=== PATIENT | male | born 1975 | race Caucasian/White ===

== ENCOUNTER 2017-08-25 12:30 | Emergency (ER) | payer BC ==
[2017-08-25] MEDS ORDERED: Lidocaine 1% 20 ML MDV INJECT ONE (12:47)
[2017-08-25] MEDS ORDERED: Diphtheria,Pertussis(Acell),Tetanus Vaccine 0.5 ML Syringe IM ONE (12:47)
[2017-08-25] MEDS ORDERED: Bacitracin Oint 1 GM U/D Packet TOP ONE (12:48)
--- NOTE | 2017-08-25 13:04 | EDM.PDOC ---
ED HPI GENERAL MEDICAL PROBLEM - General Chief Complaint: Laceration Stated Complaint: RT KNEE Time Seen by Provider: 08/25/17 12:35 Source of Information: Reports: Patient History Limitations: Reports: No Limitations - History of Present Illness INITIAL COMMENTS - FREE TEXT/NARRATIVE: HISTORY AND PHYSICAL: History of present illness: Patient is a 41-year-old male who presents to the emergency room today with complaints of a laceration to his right knee. States he was walking outside and slipped on the 80s falling onto his right knee. He does have a 3 cm laceration across the mid patella. Patient is ambulatory and denies any difficulty walking. Tetanus was last updated 7-8 years ago. Denies any numbness or tingling to the affected extremity. Denies any previous trauma, injury or surgeries to the affected extremity. Review of systems: As per history of present illness and below otherwise all systems reviewed and negative. Past medical history: As per history of present illness and as reviewed below otherwise noncontributory. Surgical history: As per history of present illness and as reviewed below otherwise noncontributory. Social history: No reported history of drug or alcohol abuse. Family history: As per history of present illness and as reviewed below otherwise noncontributory. Physical exam: Gen.: Well-developed and well-nourished 41-year-old male. Alert and oriented. Nontoxic appearing. HEENT: Atraumatic, normocephalic, pupils reactive, negative for conjunctival pallor or scleral icterus, mucous membranes moist, throat clear, neck supple, nontender, trachea midline. Lungs: Clear to auscultation, breath sounds equal bilaterally, chest nontender. Heart: S1S2, regular, negative for clicks, rubs, or JVD. Abdomen: Soft, nondistended, nontender. Negative for masses or hepatosplenomegaly. Negative for costovertebral tenderness. Pelvis: Stable nontender. Genitourinary: Deferred. Rectal: Deferred. Extremities: Good flexion and extension of the knee. Negative drawer test. No knee instability noted. Strong pedal pulses bilaterally. Neurovascular unremarkable. Skin: 3 cm laceration to mid left knee, no active bleeding noted. Neuro: Awake, alert, oriented. Cranial nerves II through XII unremarkable. Cerebellum unremarkable. Motor and sensory unremarkable throughout. Exam nonfocal. Lacerated area was anesthetized with 1% lidocaine. Area was cleansed with chlorhexidine and irrigated with wound wash. #5 interrupted stitches were placed in the right knee, using 3-0 nylon. Patient tolerated well. Nonstick dressing was applied with bacitracin. Knee immobilizer was placed by nursing staff. Patient was educated on signs and symptoms of infection and what to monitor for that would prompt him to come back to the ER. Patient voices understanding and is agreeable to plan of care. He denies any further questions at this time. Diagnostics: [] Therapeutics: Tdap, wound irrigation/cleansing, nonstick bacitracin dressing, knee immobilizer Impression: Laceration Plan: 1. Please keep the lacerated area clean and dry. Monitor for signs of infection as we discussed. Stitches out in 10-12 days. 2. To prevent the stitches from popping open, please use the knee immobilizer and avoid overuse/deep bending of the knee. 3. Tylenol and or Motrin as needed for pain management. Rest, ice, elevate the affected extremity. 4. Follow up with the primary care provider in the next 1-2 days. Return to the ED as needed and as discussed. Definitive disposition and diagnosis as appropriate pending reevaluation and review of above. Right Knee Pain Score (Numeric/FACES): 5 - Related Data Allergies Allergy/AdvReac Type Severity Reaction Status Date / Time apple juice Allergy Vomiting Uncoded 08/25/17 12:44 Past Medical History - Infectious Disease History Infectious Disease History: Reports: Chicken Pox - Past Surgical History HEENT Surgical History: Reports: Tonsillectomy Musculoskeletal Surgical History: Reports: Arthroscopic Knee Social & Family History - Family History Family Medical History: Noncontributory - Tobacco Use Smoking Status *Q: Former Smoker Used Tobacco, but Quit: Yes Month Tobacco Last Used: unknown - Recreational Drug Use Recreational Drug Use: No ED ROS GENERAL - Review of Systems Review Of Systems: ROS reveals no pertinent complaints other than HPI. ED EXAM, SKIN/RASH Exam: See Below (See dictation) ED SKIN PROCEDURES - Laceration/Wound Repair Right Middle Knee Lac/Wound length In cm: 3 Appearance: Subcutaneous Distal NVT: No Tendon Injury Anesthetic Type: Local Local Anesthesia - Lidocaine (Xylocaine): 1% Plain Local Anesthetic Volume: 5cc Skin Prep: Chlorhexidine (Hibiciens), Saline, Sterile Drape Exploration/Debridement/Repair: Wound Explored, In a Bloodless Field, Explored to Base, No Foreign Material Found Closed with: Sutures Suture Size: 3-0 # of Sutures: 5 Sterile Dressing Applied: Provider Tetanus Status Addressed: Yes Complications: No Course - Vital Signs Last Recorded V/S: Last Vital Signs Temp 98.0 F 08/25/17 12:40 Pulse 72 08/25/17 12:40 Resp 18 08/25/17 12:40 BP 128/74 08/25/17 12:40 Pulse Ox 97 08/25/17 12:40 - Orders/Labs/Meds Orders: Active Orders 24 hr Category Date Time Status Communication Order [RC] STAT Care 08/25/17 12:48 Ordered Vaccines to be Administered [RC] PER UNIT ROUTINE Care 08/25/17 12:47 Ordered DME for Discharge [COMM] Stat Oth 08/25/17 12:48 Ordered Meds: Medications Discontinued Medications Generic Name Dose Route Start Last Admin Trade Name Freq PRN Reason Stop Dose Admin Bacitracin 1 dose 08/25/17 12:48 Bacitracin Oint 1 Gm TOP 08/25/17 12:49 ONETIME ONE Diphtheria/Tetanus/Acell Pertussis 0.5 ml 08/25/17 12:47 Adacel IM 08/25/17 12:48 .ONCE ONE Lidocaine HCl 20 ml 08/25/17 12:47 Xylocaine 1% INJECT 08/25/17 12:48 ONETIME ONE Departure - Departure Time of Disposition: 13:10 Disposition: Home, Self-Care 01 Clinical Impression: Laceration - Discharge Information Referrals: PCP,None [Primary Care Provider] - Forms: ED Department Discharge Additional Instructions: My general discharge The following information is given to patients seen in the emergency department who are being discharged to home. This information is to outline your options for follow-up care. We provide all patients seen in our emergency department with a follow-up referral. The need for follow-up, as well as the timing and circumstances, are variable depending upon the specifics of your emergency department visit. If you don't have a primary care physician on staff, we will provide you with a referral. We always advise you to contact your personal physician following an emergency department visit to inform them of the circumstance of the visit and for follow-up with them and/or the need for any referrals to a consulting specialist. The emergency department will also refer you to a specialist when appropriate. This referral assures that you have the opportunity for follow-up care with a specialist. All of these measure are taken in an effort to provide you with optimal care, which includes your follow-up. Under all circumstances we always encourage you to contact your private physician who remains a resource for coordinating your care. When calling for follow-up care, please make the office aware that this follow-up is from your recent emergency room visit. If for any reason you are refused follow-up, please contact the [facility] Emergency Department at and asked to speak to the emergency department charge nurse. [facility] Primary Care [address] [place] [id number] 1. Please keep the lacerated area clean and dry. Monitor for signs of infection as we discussed. Stitches out in 10-12 days. 2. To prevent the stitches from popping open, please use the knee immobilizer and avoid overuse/deep bending of the knee. 3. Tylenol and or Motrin as needed for pain management. Rest, ice, elevate the affected extremity. 4. Follow up with the primary care provider in the next 1-2 days. Return to the ED as needed and as discussed. - My Orders Last 24 Hours: My Active Orders 08/25/17 12:47 Vaccines to be Administered [RC] PER UNIT ROUTINE 08/25/17 12:48 Communication Order [RC] STAT DME for Discharge [COMM] Stat - Assessment/Plan Last 24 Hours: My Active Orders 08/25/17 12:47 Vaccines to be Administered [RC] PER UNIT ROUTINE 08/25/17 12:48 Communication Order [RC] STAT DME for Discharge [COMM] Stat
== END 2017-08-25 13:31 | disposition home or self-care (01) ==
LOC: MW.ED 12:30
DX: S81.012A Laceration without foreign body, left knee, initial encounter (principal); Z23 Encounter for immunization; Z87.891 Personal history of nicotine dependence; W01.0XXA Fall on same level from slipping, tripping and stumbling without subsequent striking against object, initial encounter
CPT/HCPCS: 12002; 90471; 90715; 99282; 99282-25

== ENCOUNTER 2017-12-07 06:41 | Emergency (ER) | payer BC ==
[2017-12-07] MEDS ORDERED: traMADol 50 MG Tab PO ONE (07:14)
[2017-12-07] MEDS ORDERED: Sodium Chloride 0.9% 2.5 ML Syringe FLUSH PRN (07:14)
[2017-12-07] MEDS ORDERED: Sodium Chloride 0.9% 10 ML Syringe FLUSH PRN (07:14)
[2017-12-07] MEDS ORDERED: Ketorolac 60 MG/2 ML SDV IM ONE (07:15)
--- NOTE | 2017-12-07 07:18 | EDM.PDOC ---
ED HPI GENERAL MEDICAL PROBLEM - General Chief Complaint: Abdominal Pain Stated Complaint: STOMACH PAINS Time Seen by Provider: 12/07/17 07:12 - History of Present Illness INITIAL COMMENTS - FREE TEXT/NARRATIVE: HISTORY AND PHYSICAL: History of present illness: The patient is a 41-year-old male who follows in our family practice clinic with the residents and presents with a three-month history of right-sided abdominal pain that waxes and wanes in intensity. The patient says that there is no one trigger for it and it has come and go in intensity and he has seen his provider in the clinic for this and had blood work on November 06 as well as November 24. Because of elevated lipase and amylase levels he had a ultrasound which revealed a fatty liver a CT scan which also revealed a fatty liver and a recent MRI of the abdomen and pelvis which revealed no acute findings but a fatty liver. He has not followed up with his provider in the clinic and does not know the MRI results and presents with same pain today. 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 He has no surgical history or GI history. Currently he says the pain feels better when he lays down but he has no medications for it. He was not given anything from his provider for this. He presents today with the same pain which is not different new or changing in quality or location. He describes it as a deep achy type pain which sometimes has intense episodes. It is not related to food he has no associated symptoms such as fever vomiting diarrhea or change in bowel habits. Review of systems: As per history of present illness and below otherwise all systems reviewed and negative. Past medical history: As per history of present illness and as reviewed below otherwise noncontributory. Surgical history: As per history of present illness and as reviewed below otherwise noncontributory. Social history: No reported history of drug or alcohol abuse. Family history: As per history of present illness and as reviewed below otherwise noncontributory. Physical exam: General: Well-developed well-nourished man who is nontoxic and vital signs are stable. HEENT: Atraumatic, normocephalic, pupils reactive, negative for conjunctival pallor or scleral icterus, mucous membranes moist, throat clear, neck supple, nontender, trachea midline. Lungs: Clear to auscultation, breath sounds equal bilaterally, chest nontender. Heart: S1S2, regular, negative for clicks, rubs, or JVD. Abdomen: Soft, nondistended, mild tenderness on deep palpation in the right upper quadrant without rebound or guarding. Bowel sounds are normoactive. There is no tympany on percussion Negative for masses or hepatosplenomegaly. Pelvis: Stable nontender. Genitourinary: Deferred. Rectal: Deferred. Extremities: Atraumatic, negative for cords or calf pain. Neurovascular unremarkable. Neuro: Awake, alert, oriented. Cranial nerves II through XII unremarkable. Cerebellum unremarkable. Motor and sensory unremarkable throughout. Exam nonfocal. Diagnostics: CBC CMP amylase lipase Labs from November 06 and November 24 were reviewed as well as all imaging--his lipase on November 06 was 1017 and fell to 483 on November 24 Therapeutics: Toradol and tramadol 0805; case was discussed with Dr. Diaz who will follow up the patient in clinic and further work the patient up with a hiatus scan and possible endoscopy. Patient is comfortable with this care plan and will also contact his provider in the family practice clinic. He is aware that all labs are currently normal. Impression: Chronic right upper quadrant pain with elevated lipase Definitive disposition and diagnosis as appropriate pending reevaluation and review of above. Abdomen Pain Score (Numeric/FACES): 8 - Related Data Allergies Allergy/AdvReac Type Severity Reaction Status Date / Time apple juice Allergy Vomiting Uncoded 12/07/17 06:53 Home Meds: Home Meds . [No Known Home Meds] 12/07/17 [History] Past Medical History HEENT History: Reports: None Cardiovascular History: Reports: None Respiratory History: Reports: None Gastrointestinal History: Reports: None Genitourinary History: Reports: None Musculoskeletal History: Reports: None Neurological History: Reports: None Psychiatric History: Reports: Anxiety Endocrine/Metabolic History: Reports: None Hematologic History: Reports: None Immunologic History: Reports: None Oncologic (Cancer) History: Reports: None Dermatologic History: Reports: None - Infectious Disease History Infectious Disease History: Reports: Chicken Pox - Past Surgical History Head Surgeries/Procedures: Reports: None HEENT Surgical History: Reports: Tonsillectomy Musculoskeletal Surgical History: Reports: Arthroscopic Knee Social & Family History - Family History Family Medical History: Noncontributory - Tobacco Use Smoking Status *Q: Former Smoker Used Tobacco, but Quit: No Month/Year Tobacco Last Used: unknown - Caffeine Use Caffeine Use: Reports: Coffee - Recreational Drug Use Recreational Drug Use: No ED ROS GENERAL - Review of Systems Review Of Systems: ROS reveals no pertinent complaints other than HPI. ED EXAM, GENERAL - Physical Exam Exam: See Below (see dictation) Course - Vital Signs Last Recorded V/S: Last Vital Signs Temp 36.2 C 12/07/17 06:53 Pulse 67 12/07/17 06:53 Resp 18 12/07/17 06:53 BP 118/72 12/07/17 06:53 Pulse Ox 98 12/07/17 06:53 - Orders/Labs/Meds Orders: Active Orders 24 hr Category Date Time Status Sodium Chloride 0.9% [Saline Flush] Med 12/07/17 07:14 Active 10 ml FLUSH ASDIRECTED PRN Sodium Chloride 0.9% [Saline Flush] Med 12/07/17 07:14 Active 2.5 ml FLUSH ASDIRECTED PRN Saline Lock Insert [OM.PC] Stat Oth 12/07/17 07:14 Ordered Medication Orders Sodium Chloride (Saline Flush) 10 ml FLUSH ASDIRECTED PRN PRN Reason: Keep Vein Open Sodium Chloride (Saline Flush) 2.5 ml FLUSH ASDIRECTED PRN PRN Reason: Keep Vein Open Labs: Laboratory Tests 12/07/17 12/07/17 12/07/17 Range/Units 07:23 07:23 07:23 WBC 5.45 (4.0-11.0) K/uL RBC 4.89 (4.50-5.90) M/uL Hgb 15.2 (13.0-17.0) g/dL Hct 42.6 (38.0-50.0) % MCV 87.1 (80.0-98.0) fL MCH 31.1 (27.0-32.0) pg MCHC 35.7 (31.0-37.0) g/dL RDW Std Deviation 43.7 (28.0-62.0) fl RDW Coeff of Monty 14 (11.0-15.0) % Plt Count 235 (150-400) K/uL MPV 9.10 (7.40-12.00) fL Neut % (Auto) 50.8 (48.0-80.0) % Lymph % (Auto) 38.3 (16.0-40.0) % [place] % (Auto) 8.1 (0.0-15.0) % Eos % (Auto) 2.6 (0.0-7.0) % Baso % (Auto) 0.2 (0.0-1.5) % Neut # (Auto) 2.8 (1.4-5.7) K/uL Lymph # (Auto) 2.1 (0.6-2.4) K/uL [place] # (Auto) 0.4 (0.0-0.8) K/uL Eos # (Auto) 0.1 (0.0-0.7) K/uL Baso # (Auto) 0.0 (0.0-0.1) K/uL Nucleated RBC % 0.0 /100WBC Nucleated RBCs # 0 K/uL Sodium 139 (136-148) mmol/L Potassium 3.6 (3.5-5.1) mmol/L Chloride 103 (98-107) mmol/L Carbon Dioxide 24.3 (21.0-32.0) mmol/L BUN 14 (7.0-18.0) mg/dL Creatinine 1.1 (0.8-1.3) mg/dL Est Cr Clr Drug Dosing 75.49 mL/min Estimated GFR (MDRD) > 60.0 ml/min Glucose 108 H (74-106) mg/dL Calcium 9.0 (8.5-10.1) mg/dL Total Bilirubin 0.7 (0.2-1.0) mg/dL AST 6 L (15-37) IU/L ALT 49 (14-63) IU/L Alkaline Phosphatase 54 (46-116) U/L Total Protein 7.4 (6.4-8.2) g/dL Albumin 4.0 (3.4-5.0) g/dL Globulin 3.4 (2.0-3.5) g/dL Albumin/Globulin Ratio 1.2 L (1.3-2.8) Amylase 57 (25-115) U/L Lipase 296 (73-393) U/L H. pylori IgG Antibody NEGATIVE (NEG) Meds: Medications Generic Name Dose Route Start Last Admin Trade Name Freq PRN Reason Stop Dose Admin Sodium Chloride 10 ml 12/07/17 07:14 Saline Flush FLUSH ASDIRECTED PRN Keep Vein Open Sodium Chloride 2.5 ml 12/07/17 07:14 Saline Flush FLUSH ASDIRECTED PRN Keep Vein Open Discontinued Medications Generic Name Dose Route Start Last Admin Trade Name Judd PRN Reason Stop Dose Admin Ketorolac Tromethamine 60 mg 12/07/17 07:15 12/07/17 07:27 Toradol IM 12/07/17 07:16 60 mg ONETIME ONE Administration Tramadol HCl 50 mg 12/07/17 07:14 12/07/17 07:26 Ultram PO 12/07/17 07:15 50 mg ONETIME ONE Administration Departure - Departure Time of Disposition: 08:37 Disposition: Home, Self-Care 01 Condition: Good Clinical Impression: Abdominal pain Qualifiers: Abdominal location: right upper quadrant Qualified Code(s): R10.11 - Right upper quadrant pain - Discharge Information Referrals: PCP,None [Primary Care Provider] - Forms: ED Department Discharge Additional Instructions: The following information is given to patients seen in the emergency department who are being discharged to home. This information is to outline your options for follow-up care. We provide all patients seen in our emergency department with a follow-up referral. The need for follow-up, as well as the timing and circumstances, are variable depending upon the specifics of your emergency department visit. If you don't have a primary care physician on staff, we will provide you with a referral. We always advise you to contact your personal physician following an emergency department visit to inform them of the circumstance of the visit and for follow-up with them and/or the need for any referrals to a consulting specialist. The emergency department will also refer you to a specialist when appropriate. This referral assures that you have the opportunity for followup care with a specialist. All of these measure are taken in an effort to provide you with optimal care, which includes your followup. Under all circumstances we always encourage you to contact your private physician who remains a resource for coordinating your care. When calling for followup care, please make the office aware that this follow-up is from your recent emergency room visit. If for any reason you are refused follow-up, please contact the [facility] emergency department at and ask to speak to the emergency department charge nurse. [facility] Primary care- Internal Medicine and Family [facility] [address] [place] [id number] [address] [facility] Specialty Care-General Surgery Professional Building [address] [place] [address] [address] [place] [address] Please eat a low-fat diet and contact your provider in the family practice clinic as well as Dr. Devlin in the surgery clinic for follow-up as we discussed. Return to ER as needed and as discussed. Use medications given to you for pain but only when you're at home. - My Orders Last 24 Hours: My Active Orders 12/07/17 07:14 Sodium Chloride 0.9% [Saline Flush] 10 ml FLUSH ASDIRECTED PRN Sodium Chloride 0.9% [Saline Flush] 2.5 ml FLUSH ASDIRECTED PRN Saline Lock Insert [OM.PC] Stat - Assessment/Plan Last 24 Hours: My Active Orders 12/07/17 07:14 Sodium Chloride 0.9% [Saline Flush] 10 ml FLUSH ASDIRECTED PRN Sodium Chloride 0.9% [Saline Flush] 2.5 ml FLUSH ASDIRECTED PRN Saline Lock Insert [OM.PC] Stat
[2017-12-07 07:55] LABS: CHLORIDE,CL 103 mmol/L (98-107); SODIUM,NA 139 mmol/L (136-148)
== END 2017-12-07 08:55 | disposition home or self-care (01) ==
LOC: MW.ED 06:41
DX: R10.11 Right upper quadrant pain (principal); R74.8 Abnormal levels of other serum enzymes; Z91.018 Allergy to other foods; Z87.891 Personal history of nicotine dependence
CPT/HCPCS: 36415; 80053; 82150; 83690; 85025; 86677; 96372; 99283; A9270; J1885

== ENCOUNTER 2018-01-20 06:53 | Day surgery (SDC) | payer BC ==
[~2018-01-20 06:53] MED LIST: Lactated Ringers 1,000 ML IV SCH; Sodium Chloride 0.9% 10 ML Syringe FLUSH PRN; Sodium Chloride 0.9% 2.5 ML Syringe FLUSH PRN; ceFAZolin 2 GM in Premix Bag 1 BAG IV ONE
[2018-01-20] MEDS ORDERED: Rocuronium 10 MG/ML 10 ML Syringe ONE (07:25)
[2018-01-20] MEDS ORDERED: fentaNYL 250 MCG/5 ML SDV ONE ×2 (07:25→07:28)
[2018-01-20] MEDS ORDERED: Propofol 200 MG/20 ML SDV ONE ×2 (07:25→07:27)
[2018-01-20] MEDS ORDERED: Lidocaine 2% 5 ML SDV ONE (07:25)
[2018-01-20] MEDS ORDERED: Midazolam 1 MG/ML 2 ML SDV ONE ×2 (07:25→07:28)
[2018-01-20] MEDS ORDERED: Bupivacaine 0.5% 30 ML SDV ONE (07:27)
[2018-01-20] MEDS ORDERED: ceFAZolin/Dextrose,Iso-Osmotic 2 GM/50 ML Duplex Bag IV ONE (07:27)
[2018-01-20] MEDS ORDERED: Ondansetron 4 MG/2 ML SDV ONE (07:30)
--- NOTE | 2018-01-20 07:35 | PCM.PREANE ---
Preanesthetic Assessment - Anesthesia/Transfusion/Family Hx Anesthesia History: Prior Anesthesia Without Reaction Family History of Anesthesia Reaction: No Transfusion History: No Prior Transfusion(s) - Review of Systems General: No Symptoms Pulmonary: No Symptoms Cardiovascular: No Symptoms Gastrointestinal: No Symptoms Neurological: No Symptoms Other: Reports: None - Physical Assessment NPO Status Date: 01/19/18 NPO Status Time: 22:00 O2 Sat by Pulse Oximetry: 97 Respiratory Rate: 16 Vital Signs: Last Vital Signs Temp Pulse 56 L 01/20/18 07:00 Resp 16 01/20/18 07:00 BP 137/74 01/20/18 07:00 Pulse Ox 97 01/20/18 07:00 Height: 1.63 m Weight: 87.997 kg ASA Class: 1 Mental Status: Alert & Oriented x3 Dentition: Reports: Normal Dentition ROM/Head Extension: Full Lungs: Clear to Auscultation, Normal Respiratory Effort Cardiovascular: Regular Rate, Regular Rhythm - Allergies Allergies/Adverse Reactions: Allergies Allergy/AdvReac Type Severity Reaction Status Date / Time apple juice Allergy Vomiting Uncoded 01/15/18 15:40 - Anesthesia Plan Pre-Op Medication Ordered: None - Acknowledgements Anesthesia Type Planned: General Anesthesia Pt an Appropriate Candidate for the Planned Anesthesia: Yes Alternatives and Risks of Anesthesia Discussed w Pt/Guardian: Yes Pt/Guardian Understands and Agrees with Anesthesia Plan: Yes PreAnesthesia Questionnaire HEENT History: Reports: Other (See Below) Other HEENT History: wears glasses/contacts Cardiovascular History: Reports: None Respiratory History: Reports: None Gastrointestinal History: Reports: Other (See Below) Other Gastrointestinal History: was told he had a fatty liver Genitourinary History: Reports: None Musculoskeletal History: Reports: None Neurological History: Reports: Other (See Below) Other Neuro History: hx of motion sickness Psychiatric History: Reports: Anxiety Endocrine/Metabolic History: Reports: Obesity/BMI 30+ Hematologic History: Reports: None Immunologic History: Reports: None Oncologic (Cancer) History: Reports: None Dermatologic History: Reports: None - Infectious Disease History Infectious Disease History: Reports: Chicken Pox - Past Surgical History HEENT Surgical History: Reports: Tonsillectomy Musculoskeletal Surgical History: Reports: Arthroscopic Knee - SUBSTANCE USE Smoking Status *Q: Former Smoker Tobacco Use Within Last Twelve Months: No Recreational Drug Use History: No - HOME MEDS Home Medications: Home Meds . [No Known Home Meds] 12/07/17 [History] - CURRENT (IN HOUSE) MEDS Current Meds: Current Medications Lactated Ringer's (Ringers, Lactated) 1,000 mls @ 125 mls/hr IV ASDIRECTED ROSANNE Sodium Chloride (Saline Flush) 10 ml FLUSH ASDIRECTED PRN PRN Reason: Keep Vein Open Sodium Chloride (Saline Flush) 2.5 ml FLUSH ASDIRECTED PRN PRN Reason: Keep Vein Open Discontinued Medications Bupivacaine HCl (Marcaine 0.5%) Confirm Administered Dose 30 ml .ROUTE .STK-MED ONE Stop: 01/20/18 07:28 Cefazolin Sodium/Dextrose (Ancef) Confirm Administered Dose 2 gm IV .STK-MED ONE Stop: 01/20/18 07:28 Fentanyl (Sublimaze) Confirm Administered Dose 250 mcg .ROUTE .STK-MED ONE Stop: 01/20/18 07:26 Fentanyl (Sublimaze) Confirm Administered Dose 250 mcg .ROUTE .STK-MED ONE Stop: 01/20/18 07:29 Cefazolin Sodium/Dextrose 2 gm (/ Premix) 50 mls @ 100 mls/hr IV ONETIME ONE Stop: 01/19/18 18:42 Acetaminophen (Ofirmev) Confirm Administered Dose 100 mls @ as directed IV .STK- MED ONE Stop: 01/20/18 07:28 Lidocaine (Xylocaine-Mpf 2%) Confirm Administered Dose 5 ml .ROUTE .STK-MED ONE Stop: 01/20/18 07:26 Midazolam HCl (Versed 1 Mg/Ml) Confirm Administered Dose 2 mg .ROUTE .STK-MED ONE Stop: 01/20/18 07:26 Midazolam HCl (Versed 1 Mg/Ml) Confirm Administered Dose 2 mg .ROUTE .STK-MED ONE Stop: 01/20/18 07:29 Ondansetron HCl (Zofran) Confirm Administered Dose 4 mg .ROUTE .STK-MED ONE Stop: 01/20/18 07:31 Propofol (Diprivan 20 Ml) Confirm Administered Dose 200 mg .ROUTE .STK-MED ONE Stop: 01/20/18 07:26 Propofol (Diprivan 20 Ml) Confirm Administered Dose 200 mg .ROUTE .STK-MED ONE Stop: 01/20/18 07:28 Rocuronium [place] (Zemuron) Confirm Administered Dose 100 mg .ROUTE .[facility] ONE Stop: 01/20/18 07:26
[2018-01-20] MEDS ORDERED: HYDROmorphone 2 MG/ML SDV ONE (08:11)
[2018-01-20] MEDS ORDERED: ePHEDrine 50 MG/ML SDV ONE (08:25)
[2018-01-20] MEDS ORDERED: Neostigmine Methylsulfate 1 MG/ML 5 ML Syringe ONE (08:46)
[2018-01-20] MEDS ORDERED: Glycopyrrolate 0.2 MG/ML SDV ONE (08:46)
[2018-01-20] MEDS ORDERED: Ketorolac 30 MG/ML SDV ONE (08:48)
--- NOTE | 2018-01-20 08:56 | PCM.OPNOTE ---
- General Post-Op/Procedure Note Date of Surgery/Procedure: 01/20/18 Operative Procedure(s): Laparoscopic cholecystectomy Findings: Normal appearing gallbladder Pre Op Diagnosis: Biliary dyskinesia Post-Op Diagnosis: same Anesthesia Technique: MAC Primary Surgeon: Maxine Devlin Fluid Replacement, Intraop: 1,300 Output, Urine Amount: 75 EBL in mLs: 10 Condition: Good
--- NOTE | 2018-01-20 09:32 | PCM.POSTAN ---
POST ANESTHESIA ASSESSMENT - MENTAL STATUS Mental Status: Alert, Oriented - RESPIRATORY Respiratory Status: Respiratory Rate WNL, Airway Patent, O2 Saturation Stable - CARDIOVASCULAR CV Status: Pulse Rate WNL, Blood Pressure Stable - GASTROINTESTINAL GI Status: No Symptoms - POST OP HYDRATION Hydration Status: Adequate & Stable
[2018-01-20] MEDS ORDERED: Haloperidol Lactate 5 MG/ML SDV IM ONE (09:58)
[2018-01-20] MEDS ORDERED: Acetaminophen/oxyCODONE 325-5 MG Tab PO PRN (10:22)
--- NOTE | 2018-01-20 13:15 | PCM48HPAN ---
Post Anesthesia Note - EVALUATION WITHIN 48HRS OF ANESTHETIC Vital Signs in Normal Range: Yes Patient Participated in Evaluation: Yes Respiratory Function Stable: Yes Airway Patent: Yes Cardiovascular Function Stable: Yes Hydration Status Stable: Yes Pain Control Satisfactory: Yes Nausea and Vomiting Control Satisfactory: Yes Mental Status Recovered: Yes Resp Rate: 16
--- NOTE | 2018-01-20 13:26 | OR ---
SURGEON: EMILEE MARTINEZ MD DATE OF PROCEDURE: 01/20/2018 PREOPERATIVE DIAGNOSIS: Biliary dyskinesia. POSTOPERATIVE DIAGNOSIS: Biliary dyskinesia. PROCEDURE PERFORMED: Laparoscopic cholecystectomy. ANESTHESIA: General endotracheal anesthesia. FLUIDS: 1300 mL of crystalloid. ESTIMATED BLOOD LOSS: 10 mL. URINE OUTPUT: 75 mL. FINDINGS: Normal-appearing gallbladder. COMPLICATIONS: None. INDICATIONS: The patient is a 42-year-old male, who presented several months ago with pancreatitis. A thorough workup revealed no specific cause for this. A HIDA scan was performed that showed 0% ejection fraction. This was consistent with biliary dyskinesia. The decision was made to proceed with cholecystectomy. We discussed the laparoscopic and open approaches. Should I be unable to perform it safely laparoscopically, we will convert to open. We discussed the expected perioperative course as well as the risks including bleeding, infection, or damage to surrounding structures. The patient verbalized understanding and wishes to proceed. PROCEDURE IN DETAIL: The patient was brought into the OR, placed on the OR table in supine position. A time-out was completed verifying the patient's name, age, date of , allergies, and procedure to be performed. General endotracheal anesthesia was induced. The left arm was tucked to the patient's side and a Pérez catheter was placed. The abdomen was prepped and draped in usual standard fashion. The infraumbilical fold was anesthetized with 0.5% Marcaine plain. An 11 blade was used to make an incision along the infraumbilical fold. Cautery was used to dissect down into the subcutaneous fat layer. S retractors were used to dissect bluntly down to the level of the fascia. The fascia was elevated with Patrice's and incised sharply with the Shearer scissors. The peritoneum was noted beneath this. It was grasped with hemostat and incised sharply with the Metzenbaum scissors. Entry in the abdomen was palpated. A 12 mm Wali trocar was placed in the abdomen and the abdomen insufflated. A 5 mm 30-degree scope was inserted in the abdomen. I inspected the area underneath my initial trocar placement. This appeared normal. The patient was then placed into reverse Trendelenburg position and airplaned slightly to the left. 5 mm trocars were placed in the following locations, one in the epigastric area, one in the right flank, and one 2 fingerbreadths below the right subcostal margin in the midclavicular line. The dome of the gallbladder was grasped and elevated. The infundibulum was grasped with an atraumatic grasper through the subcostal port. The peritoneum overlying the infundibulum was incised using hook cautery. Blunt dissection was then used to dissect out the cystic duct and artery. I clearly identified the node of Calot. Once I achieve my critical view, I doubly clipped and ligated the cystic duct and artery. The gallbladder was then removed from the gallbladder fossa using electrocautery. The gallbladder was then placed in an EndoCatch bag and removed through the infraumbilical port site. I replaced my Wali trocar and inspected my operative field. It was hemostatic and the clips appeared to be in good position. There was no bile leaking. Because there was a little to no blood loss and no spillage, I did not irrigate the abdomen. The 5 mm trocars were removed under direct visualization and the abdomen allowed to desufflate. The 12 mm Wali trocar was removed as well. The fascia at the infraumbilical port site was closed with interrupted 0 Vicryl sutures. The subcutaneous fat layer was closed with interrupted 3-0 Vicryl. The skin was closed with a running 4-0 Monocryl stitch. The 5 mm port sites were closed with interrupted 4-0 Monocryl sutures. Steri-Strips and sterile dressings were applied. The patient tolerated the procedure well and was taken to PACU in stable condition. [place] /[id number]
== END 2018-01-20 11:15 | disposition home or self-care (01) ==
LOC: MW.SDS 06:53
PROVIDERS: ATTEND Surgery
DX: K81.1 Chronic cholecystitis (principal); E66.9 Obesity, unspecified; Z68.33 Body mass index [BMI] 33.0-33.9, adult; Z87.891 Personal history of nicotine dependence; Z91.018 Allergy to other foods; F41.9 Anxiety disorder, unspecified
CPT/HCPCS: 47562; A9270; J0690; J1170; J1630; J1885; J2250; J2405; J3010; J7120; 88304; J2704